=== PATIENT | female | born 1995 | race Caucasian/White ===

== ENCOUNTER → 2018-05-22 16:58 | Outpatient (CLI) | payer BC, SELFPAY ==
[2018-05-24 15:24] LABS: HPV Reflexed? NOT INDICATED
== END ==
PROVIDERS: Visit Provider Obstetrics & Gynecology
DX: Z12.4 Encounter for screening for malignant neoplasm of cervix (principal)
CPT/HCPCS: 88175; G0145

== ENCOUNTER 2018-12-13 10:43 | Emergency (ER) | payer BC, SELFPAY ==
[2018-12-13 10:44] VITALS: BP 147/88; PULSE 92; RESP 18; TEMP 36.1; O2SAT 98; BMI 26.4
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
[2018-12-13] MEDS: Ibuprofen 600 MG Tablet PO (11:42)
== END 2018-12-13 11:55 | disposition home or self-care (01) ==
PROVIDERS: Emergency Provider Emergency Medicine; Family Provider Student in an Organized Health Care Education/Training Program; PCP Student in an Organized Health Care Education/Training Program
DX: S16.1XXA Strain of muscle, fascia and tendon at neck level, initial encounter (principal); S39.012A Strain of muscle, fascia and tendon of lower back, initial encounter; V89.2XXA Person injured in unspecified motor-vehicle accident, traffic, initial encounter; Y93.9 Activity, unspecified; Y92.9 Unspecified place or not applicable
CPT/HCPCS: 99283

== ENCOUNTER 2019-06-13 07:30 | Outpatient (RCR) | payer BC, SELFPAY ==
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
--- NOTE | 2019-04-16 09:50 | HP.PTREVAL ---
Lam Haji, DO, It has been my pleasure to treat LENIN VICTORIA over the last 10 visits for L SI dysfunction. Please see the progress note below for an update on the physical therapy plan of care! Subjective: Pt. reports beint 75% better overall. She has had some lateral hip pain, in her TFL region. Pt. reports having 2/10 pain in her L SI region and 3/10 pain in her IT region on L side. Pt. reports being HEP compliant and stretching has been helpful. Objective/Function: Pt. has been progressing with core stability exercises. SHe did have some discomfort in her TFL/IT band region after doing some stability exercises. Pt. is progressing well otherwise. Pt. has been very compliant with her exercises. Pt. has full ROM with mild increase NW with end range flexion. She still has some pain 2-3/10 pain with prolonged sitting (ie plane trip) and with lifting ehavier objects. Plan Plan: Cont. with POC x1 per week for 4 weeks. Cont. to progress core stability and hip/pelvic stability as tiolerated. Pt. has been doing well with x1 per week with progresion of HEP. Goals Goal 1:: Pt. to be I with HEP. Goal Time Frame: 4-6 Weeks Goal Progress: Progressing Goal 2:: Pt. to have have normal leg length testing R to L. Goal Time Frame: 2-4 Weeks Goal Progress: Goal Met Goal 3:: Pt. to have increased core strength by 1/2 grade of all effected musculature. Goal Time Frame: 4-6 Weeks Goal 4:: Pt. to ambulate unlmited distances without increase in symptoms. Goal Time Frame: 4-6 Weeks Goal Progress: Progressing Goal 5:: Pt. to sit unlimited amount of time without increase in symptoms. Goal Time Frame: 4-6 Weeks Goal Progress: Progressing Goal 6:: Pt. run without increase in symptoms. Goal Progress: Progressing Anticipated Interventions Patient/Client Instruction: Educate patient on: Condition, Plan of Care, Risk Factors, Benefits of Fitness Program For the Purpose of:: To improve decision making, To facilitate caregiver knowledge, To improve self management, To prevent re-injury, To improve ability to perform tasks related to life management, To improve tolerance to ADL's Therapeutic Exercise to Include: Strength training, Body mechanics, Postural training, Flexibilty training, Gait and locomotor training, Passive ROM, Active ROM For the Purpose of:: To decrease pain, To decrease swelling/inflammation, To increase ROM, To improve nutrient delivery to tissue, To increase oxygenation perfusion, To improve muscle performance and motor function, To improve gait and locomotor functions Manual Therapy Techniques to Include: Mobilization, Manipulation, Functional dry needling, Soft tissue mobilization For the Purpose of:: To decrease pain, To decrease swelling/inflammation, To increase ROM, To improve nutrient delivery to tissue Please do not hesitate to contact me at [phone] by phone or if you have questions or concerns regarding this new plan of care! Sincerely, CLARIBEL JangT
--- NOTE | 2019-06-17 08:26 | HP.PTDCSUM ---
HP - PT D/C Summary It has been my pleasure to treat LENIN VICTORIA under orders from Lam Haji DO, for the diagnosis of L SI dysfunction for a total of 20 visit(s). Discharge Date: 06/13/19 Please see the following information for a summary of their discharge status. - Subjective Subjective: Pt. reports being 95% better overall. She reports having occassional symptoms if she sits to long, but overall not much issues with trip. pt. is independent with HEP. - Pain L side of SI joint Pain Intensity (Out of 10): 0 L SI region Pain Intensity (Out of 10): 0 L hip Pain Intensity (Out of 10): 0 - Overall Improvement % Improvement: 95 - Objective Objective/Function: ROM: Pt. has full ROM of lumbar spine and hip without increase in symptoms. Pt. has good 5/5 strength throughout without increase in symptoms. Pt. is able to walk, run and negotiate steps without issues. Pt. does ahve some isseus with prolonged sitting. I talked to her about contiuned REIL/NICOLAS to reduce symptoms and to focus on core stability. Pt. consents. - Goals Goal 1:: Pt. to be I with HEP. Goal Progress: Goal Met Goal 2:: Pt. to have have normal leg length testing R to L. Goal Progress: Goal Met Goal 3:: Pt. to have increased core strength by 1/2 grade of all effected musculature. Goal Progress: Goal Met Goal 4:: Pt. to ambulate unlmited distances without increase in symptoms. Goal Progress: Goal Met Goal 5:: Pt. to sit unlimited amount of time without increase in symptoms. Goal Progress: Goal Met Goal 6:: Pt. run without increase in symptoms. Goal Progress: Goal Met - Plan Plan: PtTania neal DC from PT this date. - D/C Information Discharge Comments: Pt. was treated for her lumbar spine/SI pain and R hip pain. Pt. did well with REIL and core stability exercises. Pt. is back to most activities including running and gym exercises without limitations. Pt. will be DC from PT at this point in time to HEP. If there are questions or concerns regarding this patient's physical therapy, please feel free to call me at [phone]. Thank you for the referral of this patient. Sincerely, Vladimir Coelho DPT
== END 2019-06-13 19:00 | disposition home or self-care (01) ==
LOC: PT 07:30
PROVIDERS: Family Provider Student in an Organized Health Care Education/Training Program; PCP Student in an Organized Health Care Education/Training Program; Referring Provider Student in an Organized Health Care Education/Training Program; Visit Provider Student in an Organized Health Care Education/Training Program
DX: M53.3 Sacrococcygeal disorders, not elsewhere classified (principal); S16.1XXD Strain of muscle, fascia and tendon at neck level, subsequent encounter; S29.019D Strain of muscle and tendon of unspecified wall of thorax, subsequent encounter
CPT/HCPCS: 97110; 97161; 97164